=== PATIENT | male | born 1965 | race Caucasian/White ===

== ENCOUNTER 2017-02-07 15:41 | Emergency (ER) | payer OTHER ==
--- NOTE | 2017-02-07 16:13 | ED CLINICAL REPORT ---
Clinical Report - Physicians/Mid Levels [facility] [address] [place] [address] 02/07/2017 15:42 Patient: ERICK VAZQUEZ Time Seen: 15:49; initial patient contact, initial documentation, patient care assumed. Arrived- By private vehicle. Historian- patient. HISTORY OF PRESENT ILLNESS Treated in emergency department two days ago. Chief Complaint: RECHECK. The patient has no complaints since the procedure was performed. Previous emergency department treatment: Incision and Drainage of abscess and antibiotics given. Prescription antibiotic- Doxycycline. (pt left original bandage on, no bandage changes). REVIEW OF SYSTEMS All systems otherwise negative, except as recorded above. PAST HISTORY Negative. SOCIAL HISTORY Never smoker. Occasional alcohol use. History of drug use: marijuana. No recent travel. Is a local resident. FAMILY HISTORY No significant family medical history. ADDITIONAL NOTES The nursing notes have been reviewed with agreement regarding the chief complaint, HPI, ROS, PMH and patient medications and allergies. PHYSICAL EXAM Vital Signs: 02/07/2017 15:49 BP: 120/75. HR: 87. RR: 17. O2 saturation: 97%. Temp: 98.4 F. Pain level now: 4/10. Have been reviewed as normal and appear to be correct. Appearance: Alert. Oriented X3. No acute distress. Eyes: Pupils equal, round and reactive to light. EOM intact. Skin: Healing cellulitis. (R FA). Extremities: Normal inspection. Extremities atraumatic. No lower extremity edema. Neuro, Vascular and Tendons: Sensation intact. No tendon injury. No vascular compromise. Neuro: Oriented X 3. No motor deficit. No sensory deficit. PROGRESS AND PROCEDURES Abscess Recheck: The abscess is located on the right forearm. Packing is present. Examination of abscess reveals normal healing and no infection. Mild tenderness present. Patient counseled in person regarding the patient's stable condition and diagnosis. Differential Diagnosis: Other possible considerations: abscess recheck, cellulitis, sepis. Above considerations are based on history and physical exam. Differential diagnosis was discussed with patient. Disposition: Discharged home in good and improved condition (16:13). Condition: good and stable. CLINICAL IMPRESSION Abscess check INSTRUCTIONS Protect wound and keep wound area clean. Soak in warm soapy water twice daily. (continue with antibiotics as previously directed and discussed). Warnings: GENERAL WARNINGS: Return or contact your physician immediately if your condition worsens or changes unexpectedly, if not improving as expected, or if other problems arise. Specifically return if problem worsens. Follow-up: Follow up with your doctor in about two days as needed and for wound check. Call for an appointment. Summary of care provided to patient. Understanding of the discharge instructions verbalized by patient. (Electronically signed by Mindi Geiger A.R.N.P. 02/07/2017 21:30)
--- NOTE | 2017-02-07 16:13 | ED ORDER SUMMARY ---
..... Patient: ERICK VAZQUEZ DW OrderSheet [facility] VisitID: [id number] [address] [place] [address] 51y, M Registration Date/Time: 02/07/2017 ORDER SHEET Weight: 119.7 kg (stated) Allergies: No Known Drug Allergy GENERAL ORDERS: Dress Wounds (16:10 02/07/2017 HBivens A.R.N.P.) (16:12 [facility] Tech1) MEDICATION ORDERS: IV FLUIDS: ORDER SHEET NOTES: [Electronically signed by Mindi GeigerN.PIsreal (21:30 02/07/2017)] [Electronically signed by Christi Haque R.N. (21:55 02/07/2017)] [Electronically locked/signed by Christi Haque R.N. (21:55 02/07/2017)]
--- NOTE | 2017-02-07 16:13 | ED NURSING NOTES ---
Clinical Report - Nurses [facility] [address] [place] [address] 02/07/2017 15:42 Patient: ERICK VAZQUEZ TRIAGE Triage time 15:49 Feb 07 2017. Chief Complaint: Location of symptoms- (recheck wound that was packed here 2 nights ago- right forearm). Alert. No acute distress. SEPSIS SCREEN: Sepsis Screen: negative. Infection suspected/documented. --15:52 Christi Haque R.N. 15:49 02/07/17. BP: 120/75. HR: 87. RR: 17. O2 saturation: 97%. Temp: 98.4 F. Pain level now: 11/07. --15:52 Christi Haque R.N. Weight: 119.7 kg stated. Height/Length: 72 inches Per Patient. BMI: 35.8. --15:51 Christi Haque R.N. Medications Viagra Oral 100 mg, PRN. --15:50 Christi Haque R.N. Medication/allergy information source: the patient. --15:52 Christi Haque R.N. Allergies No Known Drug Allergy. --15:50 Christi Haque R.N. History Arrived by private vehicle. Historian: patient. An injury may have occurred. This occurred (2 days ago). 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 PAST MEDICAL HX: Tetanus status: up-to-date. Immunizations: up-to-date. SOCIAL HX: Never smoker. Occasional alcohol use. History of drug use: marijuana. No infectious disease exposure. ABUSE ASSESSMENT: No report of abuse. SELF HARM ASSESSMENT: A self harm assessment was performed. The patient answered "no" to the question "Do you have thoughts of harming or killing yourself?". FALL RISK ASSESSMENT: Fall risk assessment completed. No fall risk identified. NUTRITIONAL RISK ASSESSMENT: The nutritional risk assessment revealed no deficiencies. FUNCTIONAL ASSESSMENT: Functional assessment: no impairments noted. LEARNING NEEDS ASSESSMENT: The learning needs assessment revealed no barriers. SKIN INTEGRITY ASSESSMENT: Skin integrity risk assessment completed. No skin integrity risk identified. --15:52 Christi Haque R.N. Interventions ID band on patient. To treatment room. --15:52 Christi Hauqe R.N. PHYSICAL ASSESSMENT Ambulatory to room. GENERAL / NEURO / PSYCH: Oriented X 4. Alert. Appears in no acute distress. EXTREMITIES: Extremities exhibit normal ROM. Neuro-vascular status intact to the extremity. No upper extremity edema. Right forearm: tenderness and swelling. SKIN: Skin is warm and dry. --15:53 Christi Haque R.N. NURSING PROGRESS NOTES Patient identifiers checked. Call light placed in reach. Side rails up. Bed placed in lowest position. Brakes of bed on. Patient ready for evaluation- chart flagged. Patient waiting for evaluation. ( old dressing removed, packing remains in place). --15:54 Christi Haque R.N. Applied clean dressing (placed by NATY Oneil). --16:19 Christi Haque R.N. DISPOSITION / DISCHARGE No learning barriers present. Discharge instructions provided and reviewed with the patient. Patient verbalized understanding. Written instructions provided in Kyrgyz. The patient was discharged by the physician. He was discharged home. He left the Emergency Department ambulatory and via private vehicle. Patient driving. --16:20 Christi Haque R.N. 16:19 02/07/17. BP: deferred. HR: deferred. RR: deferred. O2 saturation: deferred. Temp: deferred. Pain level now deferred. --16:20 Christi Haque R.N. Locked/Released at 02/07/2017 21:55 by Christi Haque R.N.
--- NOTE | 2017-02-07 16:13 | ED ORDER SUMMARY ---
..... Patient: ERICK VAZQUEZ DW OrderSheet [facility] VisitID: [id number] [address] [place] [address] 51y, M Registration Date/Time: 02/07/2017 ORDER SHEET Weight: 119.7 kg (stated) Allergies: No Known Drug Allergy GENERAL ORDERS: Dress Wounds (16:10 02/07/2017 HBivens A.R.N.P.) (16:12 [facility] Tech1) MEDICATION ORDERS: IV FLUIDS: ORDER SHEET NOTES: [Electronically signed by Mindi GeigerN.PIsreal (21:30 02/07/2017)] [Electronically signed by Christi Haque R.N. (21:55 02/07/2017)] [Electronically locked/signed by Christi Haque R.N. (21:55 02/07/2017)]
--- NOTE | 2017-02-07 16:13 | ED CLINICAL REPORT ---
Clinical Report - Physicians/Mid Levels [facility] [address] [place] [address] 02/07/2017 15:42 Patient: ERICK VAZQUEZ Time Seen: 15:49; initial patient contact, initial documentation, patient care assumed. Arrived- By private vehicle. Historian- patient. HISTORY OF PRESENT ILLNESS Treated in emergency department two days ago. Chief Complaint: RECHECK. The patient has no complaints since the procedure was performed. Previous emergency department treatment: Incision and Drainage of abscess and antibiotics given. Prescription antibiotic- Doxycycline. (pt left original bandage on, no bandage changes). REVIEW OF SYSTEMS All systems otherwise negative, except as recorded above. PAST HISTORY Negative. SOCIAL HISTORY Never smoker. Occasional alcohol use. History of drug use: marijuana. No recent travel. Is a local resident. FAMILY HISTORY No significant family medical history. ADDITIONAL NOTES The nursing notes have been reviewed with agreement regarding the chief complaint, HPI, ROS, PMH and patient medications and allergies. PHYSICAL EXAM Vital Signs: 02/07/2017 15:49 BP: 120/75. HR: 87. RR: 17. O2 saturation: 97%. Temp: 98.4 F. Pain level now: 4/10. Have been reviewed as normal and appear to be correct. Appearance: Alert. Oriented X3. No acute distress. Eyes: Pupils equal, round and reactive to light. EOM intact. Skin: Healing cellulitis. (R FA). Extremities: Normal inspection. Extremities atraumatic. No lower extremity edema. Neuro, Vascular and Tendons: Sensation intact. No tendon injury. No vascular compromise. Neuro: Oriented X 3. No motor deficit. No sensory deficit. PROGRESS AND PROCEDURES Abscess Recheck: The abscess is located on the right forearm. Packing is present. Examination of abscess reveals normal healing and no infection. Mild tenderness present. Patient counseled in person regarding the patient's stable condition and diagnosis. Differential Diagnosis: Other possible considerations: abscess recheck, cellulitis, sepis. Above considerations are based on history and physical exam. Differential diagnosis was discussed with patient. Disposition: Discharged home in good and improved condition (16:13). Condition: good and stable. CLINICAL IMPRESSION Abscess check INSTRUCTIONS Protect wound and keep wound area clean. Soak in warm soapy water twice daily. (continue with antibiotics as previously directed and discussed). Warnings: GENERAL WARNINGS: Return or contact your physician immediately if your condition worsens or changes unexpectedly, if not improving as expected, or if other problems arise. Specifically return if problem worsens. Follow-up: Follow up with your doctor in about two days as needed and for wound check. Call for an appointment. Summary of care provided to patient. Understanding of the discharge instructions verbalized by patient. (Electronically signed by Mindi Geiger A.R.N.P. 02/07/2017 21:30)
--- NOTE | 2017-02-07 16:13 | ED NURSING NOTES ---
Clinical Report - Nurses [facility] [address] [place] [address] 02/07/2017 15:42 Patient: ERICK VAZQUEZ TRIAGE Triage time 15:49 Feb 07 2017. Chief Complaint: Location of symptoms- (recheck wound that was packed here 2 nights ago- right forearm). Alert. No acute distress. SEPSIS SCREEN: Sepsis Screen: negative. Infection suspected/documented. --15:52 Christi Haque R.N. 15:49 02/07/17. BP: 120/75. HR: 87. RR: 17. O2 saturation: 97%. Temp: 98.4 F. Pain level now: 11/07. --15:52 Christi Haque R.N. Weight: 119.7 kg stated. Height/Length: 72 inches Per Patient. BMI: 35.8. --15:51 Christi Haque R.N. Medications Viagra Oral 100 mg, PRN. --15:50 Christi Haque R.N. Medication/allergy information source: the patient. --15:52 Christi Haque R.N. Allergies No Known Drug Allergy. --15:50 Christi Haque R.N. History Arrived by private vehicle. Historian: patient. An injury may have occurred. This occurred (2 days ago). 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 PAST MEDICAL HX: Tetanus status: up-to-date. Immunizations: up-to-date. SOCIAL HX: Never smoker. Occasional alcohol use. History of drug use: marijuana. No infectious disease exposure. ABUSE ASSESSMENT: No report of abuse. SELF HARM ASSESSMENT: A self harm assessment was performed. The patient answered "no" to the question "Do you have thoughts of harming or killing yourself?". FALL RISK ASSESSMENT: Fall risk assessment completed. No fall risk identified. NUTRITIONAL RISK ASSESSMENT: The nutritional risk assessment revealed no deficiencies. FUNCTIONAL ASSESSMENT: Functional assessment: no impairments noted. LEARNING NEEDS ASSESSMENT: The learning needs assessment revealed no barriers. SKIN INTEGRITY ASSESSMENT: Skin integrity risk assessment completed. No skin integrity risk identified. --15:52 Christi Haque R.N. Interventions ID band on patient. To treatment room. --15:52 Christi Haque R.N. PHYSICAL ASSESSMENT Ambulatory to room. GENERAL / NEURO / PSYCH: Oriented X 4. Alert. Appears in no acute distress. EXTREMITIES: Extremities exhibit normal ROM. Neuro-vascular status intact to the extremity. No upper extremity edema. Right forearm: tenderness and swelling. SKIN: Skin is warm and dry. --15:53 Christi Haque R.N. NURSING PROGRESS NOTES Patient identifiers checked. Call light placed in reach. Side rails up. Bed placed in lowest position. Brakes of bed on. Patient ready for evaluation- chart flagged. Patient waiting for evaluation. ( old dressing removed, packing remains in place). --15:54 Christi Haque R.N. Applied clean dressing (placed by NATY Oneil). --16:19 Christi Haque R.N. DISPOSITION / DISCHARGE No learning barriers present. Discharge instructions provided and reviewed with the patient. Patient verbalized understanding. Written instructions provided in Greek. The patient was discharged by the physician. He was discharged home. He left the Emergency Department ambulatory and via private vehicle. Patient driving. --16:20 Christi Haque R.N. 16:19 02/07/17. BP: deferred. HR: deferred. RR: deferred. O2 saturation: deferred. Temp: deferred. Pain level now deferred. --16:20 Christi Haque R.N. Locked/Released at 02/07/2017 21:55 by Christi Haque R.N.
--- NOTE | 2017-02-07 21:56 | ED MED RECONCILIATION SUMMARY ---
Patient: ERICK VAZQUEZ TIN Medication Reconciliation Report [facility] VisitID: [id number] [address] [place] [address] 51y, M Registration Date/Time: 02/07/2017 Weight: 119.7 kg Height/Length: 72 in. BMI: 35.8 ALLERGIES: No Known Drug Allergy The patient's Home Medications are listed below: THE FOLLOWING MEDICATIONS NEED TO BE RECONCILED: Viagra Oral 100 mg, PRN The source(s) of the original Home Medication information: patient The following Medications were given to the patient in the Emergency Department: None. The following Medications were prescribed to the patient: None.
--- NOTE | 2017-02-07 21:56 | ED MED RECONCILIATION SUMMARY ---
Patient: ERICK VAZQUEZ TIN Medication Reconciliation Report [facility] VisitID: [id number] [address] [place] [place] [address] 51y, M Registration Date/Time: 02/07/2017 Weight: 119.7 kg Height/Length: 72 in. BMI: 35.8 ALLERGIES: No Known Drug Allergy The patient's Home Medications are listed below: THE FOLLOWING MEDICATIONS NEED TO BE RECONCILED: Viagra Oral 100 mg, PRN The source(s) of the original Home Medication information: patient The following Medications were given to the patient in the Emergency Department: None. The following Medications were prescribed to the patient: None.
--- NOTE | 2017-02-07 21:56 | ED DISCHARGE INSTRUCTIONS ---
Patient: ERICK VAZQUEZ General Instructions [facility] VisitID: [id number] [place] [address] 51y, M Registration Date/Time: 02/07/2017 Abscess check INSTRUCTIONS Protect wound and keep wound area clean. Soak in warm soapy water twice daily. (continue with antibiotics as previously directed and discussed). Warnings: GENERAL WARNINGS: Return or contact your physician immediately if your condition worsens or changes unexpectedly, if not improving as expected, or if other problems arise. Specifically return if problem worsens. Follow-up: Follow up with your doctor in about two days as needed and for wound check. Call for an appointment. Summary of care provided to patient. Understanding of the discharge instructions verbalized by patient. ADDITIONAL INFORMATION Abscess [Incision & Drainage] An abscess (sometimes called a boil) occurs when bacteria get trapped under the skin and begin to grow. Pus forms inside the abscess as the body responds to the bacteria. An abscess can occur with an insect bite, ingrown hair, blocked oil gland, pimple, cyst, or puncture wound. Treatment of your abscess has required an incision to drain the pus. If the abscess pocket was large, a gauze packing may have been inserted. This will need to be removed and possibly replaced on your next visit. Antibiotics are not required in the treatment of a simple abscess, unless the infection is spreading into the skin around the wound (known as cellulitis). Healing of the wound will take about one to two weeks depending on the size of the abscess. Healthy tissue will grow from the bottom and sides of the opening until it seals over. Home Care: The wound may drain for the first two days. Cover the wound with a clean dry dressing. If the dressing becomes soaked with blood or pus, change it. If a gauze packing was placed inside the abscess cavity, you may be advised to remove it yourself. You may do this in the shower. Once the packing is removed, you should wash the area in the shower or bath 3 to 4 times a day, until the skin opening has closed. If you were prescribed antibiotics, take them as directed until they are all gone. You may use acetaminophen (Tylenol) or ibuprofen (Motrin, Advil) to control pain, unless another pain medicine was prescribed. [ NOTE: If you have liver disease or ever had a stomach ulcer, talk with your doctor before using these medicines.] Follow Up with your doctor as advised by our staff. If a gauze packing was inserted in your wound, it should be removed in 1-2 days. Check your wound every day for the signs of worsening infection listed below. Get Prompt Medical Attention if any of the following occur: Increasing redness or swelling Red streaks in the skin leading away from the wound Increasing local pain or swelling Continued pus draining from the wound two days after treatment Fever of 100.4F (38C) or higher, or as directed by your healthcare provider Staph Infection (MRSA) "Staph" is the short name for the common bacteria called "staphylococcus aureus". Staph bacteria are often present on the skin without causing an infection. If it gets under the skin an infection occurs. This causes redness, tenderness, swelling and sometimes fluid drainage. MRSA stands for "Methicillin-Resistant Staph Aureus". Unlike a common staph infection, MRSA bacteria are resistant to the usual antibiotics and harder to treat. Also, MRSA is more toxic than common staph bacteria. It can spread quickly throughout the body and cause a life-threatening illness. MRSA is spread to others by direct physical contact with the bacteria. MRSA can also be transmitted from items contaminated by a person who has the bacteria, such as bandages, towels, bed sheets, or sports equipment. It is not spread through the air. Once you have a MRSA skin infection, you are at risk of having it recur in the future. If MRSA infection is suspected, the doctor may take a wound culture to confirm the diagnosis. Any abscess will be drained. One or sometimes two antibiotics that work against MRSA will be prescribed. Home Care: 1) Take any antibiotics prescribed exactly as directed until they are gone. 2) Follow the same washing procedures as outlined for Household Members below. 3) Keep draining wounds covered with clean, dry bandages. Change dressings as they become soiled. 4) You and those in contact with you should wash their hands frequently with soap and warm water or use an alcohol-based hand organ grinder. Do this after each time you change the bandage or touch the wound. 5) Avoid sharing personal items such as towels, washcloths, razors, clothing, or uniforms. Wash soiled sheets, towels or clothes in hot water with laundry detergent. Use an automatic clothes dryer set on high to kill any remaining bacteria. 6) Remove any artificial nails and nail georgian. 7) If you use a gym, wipe down equipment before and after each use. Treatment Of Household Members If you have been diagnosed with possible MRSA infection, those living with you are at higher risk of carrying the bacteria on their skin or in their nose, even if there is no sign of infection. Bacteria must be removed from the skin of all household members (including you) at the same time, so that it is not passed back and forth. Advise them to remove the bacteria as follows: Wash your whole body (scalp to toes) daily for five days with Hibiclens (chlorhexidine). Scrub fingernails with a brush for one minute twice a day. If any skin infections are present (boils, abscess, infected cut) these must be treated by a doctor. Washing alone will not treat a MRSA infection. Clean counter tops and children's toys; do not share personal items such as toothbrush and razors. It is okay to share glasses, plates, utensils. If antibiotic ointment was prescribed use it as directed. Follow Up with your doctor or as advised by our staff. If a wound culture was taken, call as directed in two days to obtain the results. If the culture result is positive for MRSA, tell medical personnel in the future that you were treated for this type of infection. Get Prompt Medical Attention if any of the following occur: -- Increasing redness, swelling or pain -- Red streaks in the skin around the wound -- Weakness or dizziness -- New appearance of pus or drainage from the wound -- New fever over 100.4 F (38.0 C) You have been given the following additional information: Abscess, Incision And Drainage MRSA Skin Infection, Suspected Or Confirmed (Electronically signed by Mindi Geiger A.R.N.P. 02/07/2017 21:30)
--- NOTE | 2017-02-07 21:56 | ED MAR SUMMARY ---
..... Medication Administration Record [facility] [address] [place], [place] [id number] Patient: GEORGE ERICK TIN Visit ID: [id number] 51y, M Weight: 119.7 kg Height/Length: 72 in BMI: 35.8 ALLERGIES: No Known Drug Allergy
--- NOTE | 2017-02-07 21:56 | ED MAR SUMMARY ---
..... Medication Administration Record [facility] [address] [place], [place] [id number] Patient: GEORGE ERICK TIN Visit ID: [id number] 51y, M Weight: 119.7 kg Height/Length: 72 in BMI: 35.8 ALLERGIES: No Known Drug Allergy
== END 2017-02-07 16:17 | disposition home or self-care (01) ==
LOC: ED SRH 15:41
DX: Z48.817 Encounter for surgical aftercare following surgery on the skin and subcutaneous tissue (principal); L02.413 Cutaneous abscess of right upper limb